=== PATIENT | male | born 1985 | race Caucasian/White ===

== ENCOUNTER 2019-12-06 07:27 | Emergency (ER) | payer SELFPAY ==
[2019-12-06 07:43] VITALS: BP 130/72; PULSE 66; RESP 16; TEMP 36.6; O2SAT 99
--- NOTE | 2019-12-06 08:10 | ED.HA ---
HPI - Headache General Chief Complaint: Headache Stated Complaint: headache Time Seen by Provider: 12/06/19 08:00 Source: patient Mode of arrival: ambulatory Limitations: no limitations History of Present Illness HPI Narrative: Adrian is a very pleasant 34-year-old male patient. He presents ambulatory to the emergency room. He states that he has history of migraine headaches since he was 7 years old. He started having a right-sided headache last evening between 6 and 7:00 p.m.. He has taken ibuprofen and Tylenol but it has not helped. The pain is the usual throbbing type of headache which he gets with his migraines. He has some photophobia and sound also bothers him. He has had nausea and vomiting and has not been able to keep anything down. He tried to take some Tylenol just [employer] but he threw it up. It he has not really been able to eat or drink anything since the headache started. His family physician is . he states that his family doctor is making arrangements for him to be seen by a neurologist in the near future. Besides the migraine headaches, gigi does not have any other medical problems. MD elicited complaint: headache and migraine Pertinent past history: migraines Onset (ago): day(s) ( See HPI narrative of.) Onset description: gradually and while at rest Location: right, frontal and temporal Severity: similar to previous episodes Pain scale (0-10): 7 Quality & Timing: throbbing, constant, pain radiation ( Radiates to the neck) and similar to previous headaches Exacerbating factors: light and noise Relieving factors: other ( has not had any relief with the usual medications which she takes which include ibuprofen and Tylenol) Context: occurred at rest Associated symptoms: nausea, vomiting, photophobia and sensitivity to sound Treatments prior to arrival: acetaminophen and ibuprofen Related Data Home Medications Medication Instructions Recorded Confirmed No Home Medications 12/06/19 12/06/19 Allergies Allergy/AdvReac Type Severity Reaction Status Date / Time No Known Allergies Allergy Verified 12/06/19 08:17 Review of Systems Review of Systems: All systems reviewed & are unremarkable except as noted in HPI and below Constitutional: Constitutional: Reports as per HPI, Denies chills and Denies fever(s) Eyes: Eyes: Reports as per HPI, Denies change in vision and Reports photophobia ENT: Reports system reviewed and no additional complaints, except as documented, Denies vertigo, Denies dizziness, Denies nasal congestion and Denies sore throat Cardiovascular: Cardiovascular: Reports as per HPI, Denies chest pain and Denies radiating jaw, neck or arm pain Respiratory: Respiratory: Reports as per HPI, Denies cough, Denies dyspnea and Denies wheezing Gastrointestinal: Gastrointestinal: Reports as per HPI, Reports nausea and Reports vomiting Genitourinary: Genitourinary: Reports no additional male genitourinary complaints Musculoskeletal: Musculoskeletal: Reports no additional musculoskeletal complaints and Denies back pain Integumentary/Breasts: Skin/Breast: Reports system reviewed and no additional complaints, except as docu, Denies erythema and Denies rash Neurologic: Reports system reviewed and no additional complaints, except as documented, Denies confusion, Denies vertigo, Denies dizziness, Denies syncope, Reports headache(s), Denies focal weakness, Denies numbness and Denies weakness Psychiatric: Psychiatric: Reports no additional psychiatric complaints and Reports anxiety Endocrine: Endocrine: Reports no additional endocrine complaints, Denies polydipsia and Denies polyuria Hematologic/Lymphatic: Hematologic/Lymphatic: Reports no additional hematologic/lymphatic complaints, Denies easy bleeding and Denies easy bruising Allergic/Immunologic: Allergic/Immunologic: Reports no additional allergic/immunologic complaints, Denies lip swelling and Denies throat swelling PMFSH Family History Famil
[2019-12-06] MEDS: ONDANSETRON INJ 4 MG/2 ML VIAL IV PUSH (08:18)
[2019-12-06] MEDS: KETOROLAC 30 MG/ML VIAL (*BKC) IV PUSH (08:18)
[2019-12-06] MEDS: SODIUM CHLORIDE 0.9% IV 1,000 ML 999 ML IV CONT (08:18)
[2019-12-06 09:11] VITALS: BP 130/88; PULSE 70; RESP 20; TEMP 36.2
== END 2019-12-06 09:13 | disposition home or self-care (01) ==
PROVIDERS: Emergency Provider Surgery; PCP Family Medicine
DX: G43.909 Migraine, unspecified, not intractable, without status migrainosus (principal)
CPT/HCPCS: 96361; 96374; 96375; 99282; 99284; J1885; J2405; J7030

== ENCOUNTER 2021-07-20 16:57 | Outpatient (CLI) | payer OTHER, SELFPAY ==
--- NOTE | ~2021-07-20 | XR_ITS ---
XR knee RT 3V DATE: 07/20/2021 17:42 INDICATION: Bending injury. Lateral and medial right knee pain TECHNIQUE: 3 views COMPARISON: 03/14/2017 right knee FINDINGS: No fracture or dislocation or joint effusion. No periosteal reaction or bone destruction. J oint spaces are preserved. No radiographic intra-articular loose body or chondrocalcinosis. IMPRESSION: Negative Reviewed, dictated and finalized at location A. IMPRESSION: Negative
== END 2021-07-20 16:58 | disposition home or self-care (01) ==
LOC: CHSIMG 17:12
PROVIDERS: PCP Nurse Practitioner Family; Visit Provider Nurse Practitioner Family
DX: M25.561 Pain in right knee (principal)
CPT/HCPCS: 73562

== ENCOUNTER 2021-09-18 01:11 | Emergency (ER) | payer OTHER, SELFPAY ==
[2021-09-18 01:11] VITALS: BP 168/121; PULSE 86; RESP 20; TEMP 36.6; O2SAT 98
[2021-09-18 01:21] VITALS: PULSE 86
--- NOTE | 2021-09-18 01:23 | ECG_ITS ---
Measurements Intervals [place] Rate: 82 P: 0 NH: 132 QRS: 25 QRSD: 105 T: -1 QT: 364 QTc: 427 Interpretive Statements SINUS RHYTHM INCOMPLETE RIGHT BUNDLE BRANCH BLOCK DELAYED PRECORDIAL R/S TRANSITION BORDERLINE T WAVE ABNORMALITY- INFERIOR LEADS BORDERLINE ECG Electronically Signed On 09-19-2021 8:55:21 [employer]ACH[employer] BACKTEND[employer] by Jere Ortiz D.O.
--- NOTE | 2021-09-18 01:36 | ED.ARRPALP ---
HPI - Arrhythmia/Palpitations General Chief Complaint: Arrhythmia/Palpitations Stated Complaint: chest pain Source: patient Mode of arrival: ambulatory Limitations: no limitations History of Present Illness HPI narrative: this is a 36-year-old gentleman that has a history of hypertension anxiety felt a sensation of electrical shock in his chest area on 3 separate occasions that occurred earlier this evening while watching TV, and subsequently has resolved has not had any more episodes but was concerned and mildly anxious and presented to the emergency department. Currently his blood pressure is elevated with no chest pain no shortness breath no abdominal pain no fever chills. complaint: palpitations Onset (ago): hour(s) Time: 01:37 Duration: now resolved Severity: mild Related Data Allergies Allergy/AdvReac Type Severity Reaction Status Date / Time No Known Allergies Allergy Verified 10/03/19 18:36 Review of Systems Review of Systems: All systems reviewed & are unremarkable except as noted in HPI and below PMFSH Past Medical History Medical History Anxiety Migraine Surgical History Surgical History History of appendectomy History of carpal tunnel surgery History of tonsillectomy and adenoidectomy Social History Social History Smoking packs per day: 1 Smoking cigarettes per day: 20.0 Smoking status: Current every day smoker Tobacco type: cigarettes Alcohol intake: never Substance use: never Substance use type: marijuana Gender identity (if verbalized by the patient): Male Exam Const: General: no acute distress and alert Orientation/consciousness: patient oriented x3 HENMT: Head: normal to inspection Eyes: Conjunctivae: conjunctivae normal Pupils: Equal, round and reactive pupils present Neck: Neck: normal visual inspection, no lymphadenopathy and no meningeal signs Chest: Chest palpation & inspection: normal inspection of the chest Resp: Effort & Inspection: normal respiratory effort Cardio: Rate: regular rate Rhythm: regular rhythm GI: Auscultation: normal bowel sounds Urinary Catheter: Urinary Catheter: patent and draining Back/Spine/Pelvis: Back: no CVA tenderness Skin: General skin exam: normal color Neuro: General: patient oriented x3, moves all extremities, no meningeal signs and no focal motor deficits Extrem: General: normal to inspection and no pedal edema Psych: Mental Status: mental status grossly normal Course Course Emergency Course: Patient is resting comfortably symptoms have since resolved, blood pressure still elevated 164/112 and will send blood pressure medicine for him to picker/puller in the morning and advised to follow-up his primary care physician otherwise reviewed EKG with patient and family. Vital Signs Vital signs: Vital Signs Temperature 36.6 C 09/18/21 01:11 Pulse Rate 86 09/18/21 01:11 Respiratory Rate 20 09/18/21 01:11 Blood Pressure 168/121 H 09/18/21 01:11 Pulse Oximetry 98 09/18/21 01:11 Temperature 36.6 C 09/18/21 01:11 Pulse Rate 86 09/18/21 01:21 Respiratory Rate 20 09/18/21 01:11 Blood Pressure 168/121 H 09/18/21 01:11 Pulse Oximetry 98 09/18/21 01:11 Critical Care Time Critical Care Time Critical Care Time: No Discharge Plan Discharge Clinical Impression: Anxiety, Palpitations Patient Disposition: Home, Self-Care Condition: Stable Instructions: Antibiotic Form, Heart Palpitations (ED) Additional Instructions: Follow-up with primary care physician within 1 week to assess blood pressure, will be starting blood pressure medicine that can start in the morning. Prescriptions: New losartan-hydrochlorothiazide 50-12.5 mg tablet 1 tablet PO DAILY Qty: 30 RF: 0 Follow-up/Referrals: Dioni,Lori Valentin
[2021-09-18 01:45] VITALS: BP 169/115; PULSE 79; RESP 20; TEMP 37; O2SAT 97
== END 2021-09-18 01:51 | disposition home or self-care (01) ==
PROVIDERS: Emergency Provider Emergency Medicine; PCP Nurse Practitioner Family
DX: F41.9 Anxiety disorder, unspecified (principal); R00.2 Palpitations
CPT/HCPCS: 93005; 99283; 99284

== ENCOUNTER 2022-08-25 17:18 | Emergency (ER) | payer BC, SELFPAY ==
--- NOTE | ~2022-08-25 | XR_ITS ---
EXAMINATION: XR chest 1V DATE: 08/25/2022 18:13 INDICATION: Chest pain. TECHNIQUE: A single frontal view of the chest was obtained. COMPARISON: Chest 2 views 11/30/15, CT abdomen and pelvis 08/02/16 FINDINGS: There is no pneumonia, pleural effusion, or pneumothorax. The heart size is normal. IMPRESSION: 1. No acute cardiopulmonary disease. Reviewed, dictated and finalized at location A.
--- NOTE | ~2022-08-25 | CT_ITS ---
EXAMINATION: CT brain wo con DATE: 08/25/2022 18:13 INDICATION: Headache. TECHNIQUE: Computed tomography (CT) of the head was performed without intravenous contrast. The mA wa s adjusted according to patient size. Iterative reconstruction technique was employed. The dose-lengt h product was 605.33 mGy-cm. COMPARISON: Head CT 03/13/2014 FINDINGS: There is no intracranial hemorrhage, acute infarction, or abnormal intracranial mass lesion . The ventricles are normal in size. The orbits are normal. There is mild mucosal thickening in the p aranasal sinuses. The mastoid air cells are normal. IMPRESSION: 1. Normal brain. Reviewed, dictated and finalized at location A. IMPRESSION: 1. Normal brain.
[2022-08-25 17:28] VITALS: BP 227/138; PULSE 85; RESP 18; TEMP 36.2; O2SAT 98
[2022-08-25 17:29] VITALS: BP 218/131; PULSE 89; RESP 16; TEMP 36.2; O2SAT 97
--- NOTE | 2022-08-25 17:50 | ECG_ITS ---
Measurements Intervals [place] Rate: 73 P: 9 RI: 148 QRS: 53 QRSD: 112 T: -3 QT: 394 QTc: 434 Interpretive Statements SINUS RHYTHM WITH SINUS ARRHYTHMIA MODERATE INTRAVENTRICULAR CONDUCTION DELAY [110+ ms QRS DURATION] ST ELEVATION, PROBABLY EARLY REPOLARIZATION [ST ELEVATION WITH NORMALLY INFLECTED T- WAVE] NONSPECIFIC T-WAVE ABNORMALITY COMPARED TO ECG 09/18/2021 01:30:03 SINUS ARRHYTHMIA NOW PRESENT EARLY REPOLARIZATION IS MORE PROMINENT. Electronically Signed On 08-26-2022 9:05:39 CDT by Tootie Mcelroy M.D.
[2022-08-25] MEDS: KETOROLAC (*BKC) 60 MG/2 ML VIAL IM (17:56)
[2022-08-25] MEDS: cloNIDine HCL 0.2 MG TABLET PO ×2 (17:57→18:38)
--- NOTE | 2022-08-25 17:57 | PC.NURSE ---
patient refused iv and iv fluids, erp aware. patient provided water to drink and denies any nausea or vomiting.
[2022-08-25 17:58] VITALS: BP 178/125; PULSE 83; RESP 18; O2SAT 98
[2022-08-25 18:00] LABS: Basophils Absolute Auto 0.07 K/mm3 (0.00-0.10); Basophils Percent Auto 0.8 % (0.0-1.0); Eosinophils Absolute Auto 0.22 K/mm3 (0.02-0.50); Eosinophils Percent Auto 2.5 % (1.0-6.0); Hematocrit 43.7 % (40.0-54.0); Hemoglobin 15.9 g/dL (14.0-18.0); Immature Granulocyte Absolute 0.01 K/mm3 (0.00-0.00); Immature Granulocyte Percent A 0.1 % (0.0-0.0); Lymphocytes Percent Auto 42.7 % (18.0-42.0); Mean Corpuscular HGB Conc 36.4 g/dL (32.0-36.0); Mean Corpuscular Hemoglobin 32.9 pg (27.0-31.0); Mean Corpuscular Volume 90.3 fL (78.0-102.0); Mean Platelet Volume 9.7 fl (8.7-11.0); Monocytes Absolute Auto 0.73 K/mm3 (0.10-0.90); Monocytes Percent Auto 8.4 % (2.0-11.0); Neutrophils Absolute Auto 3.9 K/mm3 (1.7-7.2); Neutrophils Percent Auto 45.5 % (50.0-70.0); Platelet Count Result 244 K/mm3 (150-420); Red Blood Count 4.84 M/mm3 (4.70-6.10); Red Cell Distribution Width 13.4 % (11.6-14.4); White Blood Count 8.7 K/mm3 (4.8-10.8)
[2022-08-25 18:18] LABS: Alanine Aminotransferase 35 U/L (16-63); Albumin Level 3.8 g/dL (3.4-5.0); Alkaline Phosphatase 41 U/L (46-116); Anion Gap 6 mmol/L (8-16); Aspartate Amino Transferase 23 U/L (15-37); Bilirubin,Total 0.3 mg/dL (0.00-1.00); Blood Urea Nitrogen 12 mg/dL (7-18); Calcium 8.7 mg/dL (8.5-10.1); Carbon Dioxide 32 mmol/L (21-32); Chloride 101 mmol/L (98-108); Estimated CRCL calculation 99 ml/min; Estimated Glomerular Filt Rate > 60; Glucose 109 mg/dL (70-99); Osmolality Calculated 288 mOsm/kg (285-295); Potassium 3.3 mmol/L (3.5-5.1); Sodium 139 mmol/L (136-145); Total Protein 8.2 g/dL (6.4-8.2)
[2022-08-25 18:19] LABS: Ethanol < 3 mg/dL (0-6)
[2022-08-25 18:39] LABS: Add Urine Microscopic? YES; Appearance Urine Clear (Clear); Bilirubin Urine Negative (Negative); Blood Urine Negative (Negative); Color Urine Yellow (Yellow); Glucose Urine UA Negative (Negative); Ketones Urine Negative (Negative); Leukocyte Esterase Ur Negative (Negative); Nitrate Urine Negative (Negative); Protein Urine 2+ (Negative); Specific Grav Ur 1.025 (1.010-1.020); Urobilinogen Urine 0.2 mg/dL (0.2-1.0); pH Urine 6.5 (5.0-8.0)
--- NOTE | 2022-08-25 18:44 | ED.HA ---
HPI - Headache General Chief Complaint: Headache Stated Complaint: high blood pressure;disoriented Time Seen by Provider: 08/25/22 17:22 Source: patient, family and RN notes reviewed Mode of arrival: ambulatory Limitations: no limitations History of Present Illness MD elicited complaint: headache, migraine and other (elevated BP which is new.) Pertinent past history: migraines Onset (ago): hour(s) (7) Onset description: suddenly and with exertion Location: frontal Severity: moderate Pain scale (0-10): 8 Quality & Timing: aching, dull and similar to previous headaches Exacerbating factors: none Relieving factors: nothing Context: occurred with exertion/activity Associated symptoms: none Treatments prior to arrival: ibuprofen Related Data Allergies Allergy/AdvReac Type Severity Reaction Status Date / Time No Known Allergies Allergy Verified 10/03/19 18:36 Review of Systems Review of Systems: All systems reviewed & are unremarkable except as noted in HPI and below Constitutional: Constitutional: Reports no additional constitutional complaints Eyes: Eyes: Reports no additional eye complaints ENT: Reports system reviewed and no additional complaints, except as documented Cardiovascular: Cardiovascular: Reports no additional cardiovascular complaints Respiratory: Respiratory: Reports no additional respiratory complaints Gastrointestinal: Gastrointestinal: Reports no additional gastrointestinal complaints Musculoskeletal: Musculoskeletal: Reports no additional musculoskeletal complaints Integumentary/Breasts: Skin/Breast: Reports system reviewed and no additional complaints, except as docu Neurologic: Reports system reviewed and no additional complaints, except as documented and Reports headache(s) Psychiatric: Psychiatric: Reports no additional psychiatric complaints Endocrine: Endocrine: Reports no additional endocrine complaints Hematologic/Lymphatic: Hematologic/Lymphatic: Reports no additional hematologic/lymphatic complaints Allergic/Immunologic: Allergic/Immunologic: Reports no additional allergic/immunologic complaints [facility] Past Medical History Medical History Anxiety Hypertension Migraine Surgical History Surgical History History of appendectomy History of carpal tunnel surgery History of tonsillectomy and adenoidectomy Social History Social History Smoking packs per day: 1 Smoking cigarettes per day: 20.0 Smoking status: Current every day smoker Tobacco type: cigarettes Alcohol intake: never Substance use: never Substance use type: marijuana Gender identity (if verbalized by the patient): Male Exam Const: General: healthy appearing, no acute distress and well nourished Nutritional Appearance: well nourished Orientation/consciousness: patient oriented x3 Limitations: no limitations HENMT: Head: normal to inspection Ears: external ears normal, TM's normal bilaterally and EAC's normal Face/Nose/Sinus: Normal external nose present, Normal nares present, normal facial exam and sinuses nontender Face and sinus: normal facial exam and sinuses nontender Mouth: Yes Normal oral and palatal mucosa present and Yes moist mucous membranes Teeth and gingiva: dentition normal Throat: posterior oropharynx normal Eyes: Conjunctivae: conjunctivae normal Pupils: Equal, round and reactive pupils present EOM: EOMs intact bilaterally Neck: Neck: normal visual inspection, no lymphadenopathy and no meningeal signs Chest: Chest palpation & inspection: normal inspection of the chest Resp: Effort & Inspection: normal respiratory effort Auscultation: clear to auscultation bilaterally Cardio: Rate: regular rate Rhythm: regular rhythm GI: GI Palp: Yes Soft to palpation and No Tenderness to palpation present (GI) Auscultat
[2022-08-25 18:46] LABS: Amphetamine Screen Urine Negative (Negative); Barbiturate Screen Urine Negative (Negative); Benzodiazepines Screen Urine Negative (Negative); Cannabinoid Screen Urine Positive (Negative); Cocaine Screen Urine Negative (Negative); Methadone Screen Urine Negative (Negative); Opiate Screen Urine Negative (Negative); Phencyclidine Screen Urine Negative (Negative)
[2022-08-25 18:47] LABS: Bacteria Urine Trace /hpf; RBC Urine 0-2 /hpf (0-2); WBC Urine 0-3 /hpf (0-3)
[2022-08-25] MEDS: POTASSIUM CHLORIDE 20 MEQ TABLET PO (18:50)
[2022-08-25 19:06] VITALS: BP 187/100; PULSE 69; RESP 20; O2SAT 96
[2022-08-25 19:17] VITALS: BP 170/92; PULSE 78; RESP 18; TEMP 37.2; O2SAT 96
== END 2022-08-25 19:21 | disposition home or self-care (01) ==
PROVIDERS: Emergency Provider Emergency Medicine; PCP Nurse Practitioner Family
DX: G43.909 Migraine, unspecified, not intractable, without status migrainosus (principal); I10 Essential (primary) hypertension; F17.200 Nicotine dependence, unspecified, uncomplicated
CPT/HCPCS: 36415; 70450; 71045; 80053; 80307; 81001; 84484; 85025; 93005; 96372; 99284; A9270; J1885

== ENCOUNTER 2022-09-12 20:54 | Emergency (ER) | payer BC, SELFPAY ==
[2022-09-12 21:02] VITALS: BP 151/95; PULSE 80; RESP 18; TEMP 36.5; O2SAT 95
[2022-09-12 21:08] VITALS: BP 139/80; PULSE 76; RESP 20; O2SAT 98
[2022-09-12 21:15] VITALS: BP 110/87
[2022-09-12 21:30] VITALS: BP 125/85
--- NOTE | 2022-09-12 21:37 | ED.GENADULT ---
HPI - General Adult General Chief complaint: Unspecified Stated complaint: blood pressure is 98 over 76 Time Seen by Provider: 09/12/22 20:56 Source: patient and RN notes reviewed Mode of arrival: ambulatory Limitations: no limitations History of Present Illness complaint: uncontrolled BP Onset (ago): day(s) (1) Radiation: non-radiation Severity: mild Quality: other (no acute sxs.) Pain Consistency: other (pain-free) Relieving factors: none Exacerbating factors: none Associated symptoms: denies other symptoms Related Data Home Medications Medication Instructions Recorded Confirmed lisinopril 20 mg tablet 20 mg PO BID 09/12/22 09/12/22 Allergies Allergy/AdvReac Type Severity Reaction Status Date / Time No Known Allergies Allergy Verified 09/12/22 21:24 Review of Systems Review of Systems: All systems reviewed & are unremarkable except as noted in HPI and below Constitutional: Constitutional: Reports no additional constitutional complaints Eyes: Eyes: Reports no additional eye complaints ENT: Reports system reviewed and no additional complaints, except as documented Cardiovascular: Cardiovascular: Reports no additional cardiovascular complaints Respiratory: Respiratory: Reports no additional respiratory complaints Gastrointestinal: Gastrointestinal: Reports no additional gastrointestinal complaints Musculoskeletal: Musculoskeletal: Reports no additional musculoskeletal complaints Integumentary/Breasts: Skin/Breast: Reports system reviewed and no additional complaints, except as docu Neurologic: Reports system reviewed and no additional complaints, except as documented Psychiatric: Psychiatric: Reports no additional psychiatric complaints Endocrine: Endocrine: Reports no additional endocrine complaints Hematologic/Lymphatic: Hematologic/Lymphatic: Reports no additional hematologic/lymphatic complaints Allergic/Immunologic: Allergic/Immunologic: Reports no additional allergic/immunologic complaints [facility] Past Medical History Medical History Anxiety Hypertension Migraine Surgical History Surgical History History of appendectomy History of carpal tunnel surgery History of tonsillectomy and adenoidectomy Family History Family History Mother No problems noted. Mother No problems noted. Father No problems noted. Social History Social History Smoking packs per day: 1 Smoking cigarettes per day: 20.0 Years smoked: 10 Smoking pack-years: 10.00 Smoking status: Current every day smoker Tobacco type: cigarettes Alcohol intake: never Alcohol use details: denies alcohol use Substance use: never Substance use type: marijuana Gender identity (if verbalized by the patient): Male Exam Const: General: healthy appearing, no acute distress and well nourished Nutritional Appearance: well nourished Orientation/consciousness: patient oriented x3 Limitations: no limitations HENMT: Head: normal to inspection Ears: external ears normal, TM's normal bilaterally and EAC's normal Face/Nose/Sinus: Normal external nose present, Normal nares present, normal facial exam and sinuses nontender Face and sinus: normal facial exam and sinuses nontender Mouth: Yes Normal oral and palatal mucosa present and Yes moist mucous membranes Teeth and gingiva: dentition normal Throat: posterior oropharynx normal Eyes: Conjunctivae: conjunctivae normal Pupils: Equal, round and reactive pupils present EOM: EOMs intact bilaterally Neck: Neck: normal visual inspection, no lymphadenopathy and no meningeal signs Chest: Chest palpation & inspection: normal inspection of the chest Resp: Effort & Inspection: normal respiratory effort Auscultation: clear to auscul
[2022-09-12 21:40] VITALS: BP 133/81; PULSE 83; RESP 18; O2SAT 100
== END 2022-09-12 21:45 | disposition home or self-care (01) ==
PROVIDERS: Emergency Provider Emergency Medicine; PCP Nurse Practitioner
DX: I10 Essential (primary) hypertension (principal)
CPT/HCPCS: 99281

== ENCOUNTER 2023-12-23 12:38 | Emergency (ER) | payer BC, SELFPAY ==
--- NOTE | ~2023-12-23 | XR_ITS ---
EXAMINATION: XR chest 1V portable DATE: 12/23/2023 12:49 INDICATION: 4 days of congestion TECHNIQUE: AP view of the chest was obtained. COMPARISON: Chest radiograph dated 08/25/2022 FINDINGS: The lungs remain clear with no focal airspace opacities, pulmonary edema, pleural effusion or pneumot horax. The cardiomediastinal silhouette is normal. Visualized bones and soft tissues are unremarkable . IMPRESSION: 1. Normal chest radiograph. Reviewed, dictated and finalized at location A. E OPERATOR IMPRESSION: 1. Normal chest radiograph.
[2023-12-23 12:42] VITALS: O2SAT 97
[2023-12-23 12:43] VITALS: BP 186/91; PULSE 96; RESP 20; TEMP 36.8; O2SAT 99
[2023-12-23] MEDS: IBUPROFEN 400 MG TABLET 800 MG PO (12:51)
[2023-12-23] MEDS: IPRATROPIUM 0.5 MG/ALBUTEROL SULFATE 2.5 MG AMPUL.NEB 3 ML INHALATION (12:52)
[2023-12-23] MEDS: ACETAMINOPHEN 500 MG TABLET 1000 MG PO (12:52)
[2023-12-23 12:56] VITALS: PULSE 76; RESP 20; O2SAT 98
--- NOTE | 2023-12-23 12:57 | ED.GENADULT ---
HPI - General Adult General Chief complaint: Upper Respiratory Infection Stated complaint: URI History of Present Illness HPI narrative: this is a 38-year-old male presenting ED with 2 days of flu-like symptoms. Patient has had a headache, nasal congestion, sore throat, and decreased appetite. Denies fever, chills, chest pain, difficulty breathing, abdominal pain nausea vomiting or diarrhea. Not vaccine is COVID. No sick. Patient has not taken anything for symptoms. Related Data Home Medications Medication Instructions Recorded Confirmed amlodipine 2.5 mg tablet 2.5 mg PO DAILY 12/23/23 12/23/23 carvedilol 3.125 mg tablet 3.125 mg PO DAILY 12/23/23 12/23/23 levothyroxine 50 mcg tablet 50 mcg PO DAILY 12/23/23 12/23/23 lisinopril 40 mg tablet 40 mg PO DAILY 12/23/23 12/23/23 propranolol 80 mg capsule,24 80 mg PO DAILY 12/23/23 12/23/23 hr,extended release Allergies Allergy/AdvReac Type Severity Reaction Status Date / Time No Known Allergies Allergy Verified 12/23/23 12:44 [facility] Past Medical History Medical History (Updated 12/23/23 @ 13:51 by Sina Azevedo MD) Anxiety Hypertension Migraine Surgical History Surgical History History of appendectomy History of carpal tunnel surgery History of tonsillectomy and adenoidectomy Family History Family History Mother No problems noted. Mother No problems noted. Father No problems noted. Social History Social History Smoking packs per day: 1 Smoking cigarettes per day: 20.0 Years smoked: 10 Smoking pack-years: 10.00 Smoking status: Current every day smoker Tobacco type: cigarettes Alcohol intake: never Alcohol use details: denies alcohol use Substance use: never Substance use type: marijuana Gender identity (if verbalized by the patient): Male Exam Narrative: APPEARANCE: No apparent distress. obese Head: normal TMs, erythematous oropharynx EYES: EOMI, NOSE: Atraumatic NECK: Trachea midline RESPIRATORY: No increased rate of breathing , scattered expiratory wheezing CARDIOVASCULAR: RRR, no peripheral edema ABDOMINAL: Non-distended MUSCULOSKELETAl: No obvious deformities NEURO: Alert. Moving 4/4 extremities SKIN:: Warm, dry. Normal color PSYCHIATRIC: Normal affect Course Vital Signs Vital signs: Vital Signs Pulse Oximetry 97 12/23/23 12:42 Oxygen Delivery Room Air 12/23/23 12:42 Temperature 98.3 F 12/23/23 12:43 Pulse Rate 86 12/23/23 13:16 Respiratory Rate 22 H 12/23/23 13:16 Blood Pressure 157/105 H 12/23/23 13:16 Pulse Oximetry 100 12/23/23 13:16 Oxygen Delivery Room Air 12/23/23 13:16 Medical Decision Making MDM Narrative Medical decision making narrative: -Course: 30-year-old male presenting with flu-like symptoms. Found to be COVID positive. Vital signs stable not requiring supplemental oxygen. Patient's condition improved after NSAIDs. Patient will be discharged with return precautions. -DDX includes but is not limited to: COVID, flu, bronchitis, viral syndrome, strep throat -Co-morbidities complicating care: hypertension, anxiety -Social determinants of health: works as a automotive parts person lives with his fiancee when the -Hx from independent Sources: [place] @ bedside -Independent interpretation of studies: COVID positive -Interventions: Motrin, Tylenol, DuoNeb -Shared decision making / Disposition: discharged -RX Motrin Tylenol Vital Signs Vital Signs: Vital Signs Pulse Oximetry 97 12/23/23 12:42 Oxygen Delivery Room Air 12/23/23 12:42 Temperature 98.3 F 12/23/23 12:43 Pulse Rate 86 12/23/23 13:16 Respiratory Rate 22 H 12/23/23 13:16 Blood Pressure 157/105 H 12/23/23 13:16 Pulse Oximetry 100 12/23/23 13:16 Oxygen Delivery Room Air 12/23/23 13:16
[2023-12-23 13:13] VITALS: PULSE 83; RESP 22; O2SAT 95
[2023-12-23 13:16] VITALS: BP 157/105; PULSE 86; RESP 22; O2SAT 100
[2023-12-23 13:33] LABS: Strep Group A RT-PCR NOT DETECTED (Negative)
[2023-12-23 13:44] LABS: SARS-CoV-2 RNA PCR Positive (Negative)
[2023-12-23 13:45] LABS: Influenza A QL RT-PCR Negative (Negative); Influenza B QL RT-PCR Negative (Negative); RSV RNA, RT-PCR Negative (Negative)
[2023-12-23 13:55] VITALS: BP 153/98; PULSE 71; RESP 20; TEMP 37.2; O2SAT 96
== END 2023-12-23 13:55 | disposition home or self-care (01) ==
PROVIDERS: Emergency Provider Emergency Medicine; PCP Nurse Practitioner Family
DX: U07.1 COVID-19 (principal); I10 Essential (primary) hypertension; F17.210 Nicotine dependence, cigarettes, uncomplicated; Z79.899 Other long term (current) drug therapy
CPT/HCPCS: 71045; 87637; 87651; 99283; A9270

== ENCOUNTER 2024-05-16 06:59 | Outpatient (CLI) | payer BC, SELFPAY ==
[2024-05-16 07:24] LABS: Basophils Absolute Auto 0.05 K/mm3 (0.00-0.10); Basophils Percent Auto 0.6 % (0.0-1.0); Eosinophils Absolute Auto 0.22 K/mm3 (0.02-0.50); Eosinophils Percent Auto 2.6 % (1.0-6.0); Hematocrit 44.1 % (40.0-54.0); Hemoglobin 15.5 g/dL (14.0-18.0); Immature Granulocyte Absolute 0.02 K/mm3 (0.00-0.00); Immature Granulocyte Percent A 0.2 % (0.0-0.0); Lymphocytes Percent Auto 36.6 % (18.0-42.0); Mean Corpuscular HGB Conc 35.1 g/dL (32-36); Mean Corpuscular Volume 90.9 fL (78.0-102.0); Mean Platelet Volume 9.2 fl (8.7-11.0); Monocytes Absolute Auto 0.86 K/mm3 (0.10-0.90); Monocytes Percent Auto 10.2 % (2.0-11.0); Neutrophils Absolute Auto 4.21 K/mm3 (1.70-7.20); Neutrophils Percent Auto 49.8 % (50.0-70.0); Platelet Count Result 221 K/mm3 (150-420); Red Blood Count 4.85 M/mm3 (4.70-6.10); Red Cell Distribution Width 13.8 % (11.6-14.4); White Blood Count 8.5 K/mm3 (4.8-10.8)
[2024-05-16 08:24] LABS: Alanine Aminotransferase 40 U/L (16-63); Albumin Level 3.6 g/dL (3.4-5.0); Alkaline Phosphatase 48 U/L (46-116); Anion Gap 10 mmol/L (4-12); Aspartate Amino Transferase 22 U/L (15-37); Bilirubin,Total 0.2 mg/dL (0.00-1.00); Blood Urea Nitrogen 15 mg/dL (7-18); Calcium 8.9 mg/dL (8.5-10.1); Carbon Dioxide 28 mmol/L (21-32); Chloride 99 mmol/L (98-108); Cholesterol 178 mg/dL (0-200); Estimated Glomerular Filt Rate > 60; Glucose 109 mg/dL (70-99); HDL Direct 35 mg/dL (40-60); LDL Cholesterol Calculated 81 mg/dL (<130); Osmolality Calculated 285 mOsm/kg (285-295); Potassium 4.4 mmol/L (3.5-5.1); Sodium 137 mmol/L (136-145); Thyroid Stimulating Hormone 4.83 uIU/mL (0.36-3.74); Total Protein 7.8 g/dL (6.4-8.2); Triglycerides 308 mg/dL (0-150)
== END 2024-05-16 07:00 | disposition home or self-care (01) ==
LOC: CHSLAB 07:02
PROVIDERS: PCP Family Medicine; Visit Provider Family Medicine
DX: I10 Essential (primary) hypertension (principal); E03.9 Hypothyroidism, unspecified; R94.6 Abnormal results of thyroid function studies
CPT/HCPCS: 36415; 80053; 80061; 84439; 84443; 85025

== ENCOUNTER 2024-09-04 07:17 | Outpatient (CLI) | payer BC, SELFPAY | END 2024-09-04 07:18 | disposition home or self-care (01) | LOC: CHSLAB 07:19 | PROVIDERS: PCP Family Medicine; Visit Provider Family Medicine | DX: E03.9 Hypothyroidism, unspecified (principal) | CPT/HCPCS: 36415; 84443 ==

== ENCOUNTER 2024-11-03 23:31 | Emergency (ER) | payer BC, SELFPAY ==
--- NOTE | 2024-11-03 23:35 | ED.URI ---
HPI - URI/Sore Throat General Chief Complaint: Upper Respiratory Infection Stated Complaint: sore throat Time Seen by Provider: 11/03/24 23:34 Source: patient Mode of arrival: ambulatory Limitations: no limitations History of Present Illness HPI Narrative: Patient is a 39-year-old male with a sore throat for 3 days. He has a fever sensation but no fever. MD elicited complaint: fever and sore throat Pertinent past history: other ( None) Onset (ago): day(s) (3) Consistency: constant Severity: moderate Pain scale (0-10): 5 Description of mucous: clear Able to tolerate fluids by mouth: Yes Exacerbating factors: swallowing Relieving factors: nothing Context: other ( patient has a sore throat for 3 days) Associated symptoms: fever ( sensation of fever but no actual fever) and sore throat Treatments prior to arrival: none Related Data Home Medications ?Medication ?Instructions ?Recorded ?Confirmed ?Last Taken ?Type amlodipine 2.5 mg tablet 2.5 mg PO DAILY 12/23/23 12/23/23 Unknown History carvedilol 3.125 mg tablet 3.125 mg PO DAILY 12/23/23 12/23/23 Unknown History levothyroxine 50 mcg tablet 50 mcg PO DAILY 12/23/23 12/23/23 Unknown History lisinopril 40 mg tablet 40 mg PO DAILY 12/23/23 12/23/23 Unknown History propranolol 80 mg capsule,24 80 mg PO DAILY 12/23/23 12/23/23 Unknown History hr,extended release Allergies Allergy/AdvReac Type Severity Reaction Status Date / Time No Known Allergies Allergy Verified 12/23/23 12:44 Review of Systems Review of Systems: All systems reviewed & are unremarkable except as noted in HPI and below Constitutional: Constitutional: Reports no additional constitutional complaints Eyes: Eyes: Reports no additional eye complaints ENT: Reports system reviewed and no additional complaints, except as documented Cardiovascular: Cardiovascular: Reports no additional cardiovascular complaints Respiratory: Respiratory: Reports no additional respiratory complaints Gastrointestinal: Gastrointestinal: Reports no additional gastrointestinal complaints Genitourinary: Genitourinary: Reports no additional male genitourinary complaints Musculoskeletal: Musculoskeletal: Reports no additional musculoskeletal complaints Integumentary/Breasts: Skin/Breast: Reports system reviewed and no additional complaints, except as docu Neurologic: Reports system reviewed and no additional complaints, except as documented Psychiatric: Psychiatric: Reports no additional psychiatric complaints Endocrine: Endocrine: Reports no additional endocrine complaints Hematologic/Lymphatic: Hematologic/Lymphatic: Reports no additional hematologic/lymphatic complaints Allergic/Immunologic: Allergic/Immunologic: Reports no additional allergic/immunologic complaints [facility] Past Medical History Medical History (Updated 11/04/24 @ 00:56 by Jose Angel Suazo MD) Hypertension Anxiety Migraine Surgical History Surgical History History of tonsillectomy and adenoidectomy History of carpal tunnel surgery History of appendectomy Family History Family History Mother No problems noted. Mother No problems noted. Father No problems noted. Social History Social History Smoking packs per day: 1 Smoking cigarettes per day: 20.0 Years smoked: 10 Smoking pack-years: 10.00 Smoking status: Current every day smoker Tobacco type: cigarettes Alcohol intake: never Alcohol use details: denies alcohol use Substance use: never Substance use type: marijuana Gender identity (if verbalized by the patient): Male Exam Const: General: healthy appearing Nutritional Appearance: well nourished Orientation/consciousness: patient oriented x3 Limitations: no limitations HENMT: Head: normal to inspection Ears: external ears normal Face/Nose/Sinus: Normal external nose present Other: red oropharynx with slight tonsillar hypertrophy bilateral Eyes: Conjunctivae: conjunctivae normal Pupils: Equal, round and reactive pupils present EOM: EOMs intact bilaterally Neck: Neck: normal visual inspection Chest: Chest palpation & inspection: normal inspection of the chest Resp: Effort & Inspection: normal respiratory effort and not labored Auscultation: clear to auscultation bilaterally and no crackles Cardio: Rate: regular rate Rhythm: regular rhythm Heart sounds: no murmurs GI: Inspection: non-distended GI Palp: Yes Soft to palpation and No Tenderness to palpation present (GI) Auscultation: normal bowel sounds : General: Yes bladder normal to palpation Back/Spine/Pelvis: Back: no CVA tenderness Skin: General skin exam: normal color Rashes: no rashes Wounds: no wounds Neuro: General: patient oriented x3 Cranial nerves: Yes Nystagmus not present Speech: normal speech Gait exam (Neuro): Normal gait present Extrem: General: normal to inspection Psych: Mental Status: mental status grossly normal Affect: normal affect Attitude: cooperative Course Vital Signs Vital signs: Vital Signs Temperature 36.8 C 11/03/24 23:39 Pulse Rate 99 11/03/24 23:39 Respiratory Rate 18 11/03/24 23:39 Blood Pressure 145/91 H 11/03/24 23:39 Pulse Oximetry 97 11/03/24 23:39 Oxygen Delivery Room Air 11/03/24 23:39 Temperature 36.8 C 11/03/24 23:39 Pulse Rate 99 11/03/24 23:39 Respiratory Rate 18 11/03/24 23:39 Blood Pressure 145/91 H 11/03/24 23:39 Pulse Oximetry 97 11/03/24 23:39 Oxygen Delivery Room Air 11/03/24 23:39 MDM - URI/Sore Throat MDM Narrative Medical decision making narrative: patient is a 39-year-old male with a sore throat for 3 days. COVID testing was negative with the panel and further strep was negative. Due to the fact that this is a sore throat and unresolved we will go ahead and treat with amoxicillin. We will add some prednisone for the swelling sensations throat. Lab Data Attestation: I reviewed the patient's lab results. Labs: Lab Results 11/03/24 Range/Units 23:47 Influenza A (RT-PCR) Negative (Negative) Influenza B (RT-PCR) Negative (Negative) RSV (RT-PCR) Negative (Negative) SARS-CoV-2 RNA (RT-PCR) Negative (Negative) Group A Strep (PCR) Not detected (Negative) Discharge Plan Discharge Clinical Impression: Pharyngitis Qualifiers: Pharyngitis/tonsillitis etiology: other specified organisms Qualified Code(s): J02.8 - Acute pharyngitis due to other specified organisms Patient Disposition: Home, Self-Care Condition: Stable Instructions: Antibiotic Form, Strep Throat (ED) Patient Language: Turkmen Prescriptions: New amoxicillin 500 mg capsule 500 mg PO BID 10 Days Qty: 20 0RF prednisone 20 mg tablet 40 mg PO DAILY 2 Days Qty: 4 0RF No Action amlodipine 2.5 mg tablet 2.5 mg PO DAILY carvedilol 3.125 mg tablet 3.125 mg PO DAILY levothyroxine 50 mcg tablet 50 mcg PO DAILY propranolol 80 mg capsule,extended release 24hr 80 mg PO DAILY lisinopril 40 mg tablet 40 mg PO DAILY acetaminophen 500 mg tablet 1,000 mg PO TID PRN (Reason: iva) 7 Days Qty: 42 0RF ibuprofen 800 mg tablet 800 mg PO TID PRN (Reason: pain) 7 Days Qty: 21 0RF Follow-up/Referrals: Del Moya MD [Primary Care Provider] - Time of Disposition: 00:58
[2024-11-03 23:39] VITALS: BP 145/91; PULSE 99; RESP 18; TEMP 36.8; O2SAT 97
--- NOTE | 2024-11-03 23:50 | PC.NURSE ---
patient and his visitor given drinks, updated on plan of care. call light within reach and lights dimmed for comfort. RN monitoring.
[2024-11-04 00:15] LABS: Strep Group A RT-PCR NOT DETECTED (Negative)
[2024-11-04 00:25] LABS: SARS-CoV-2 RNA PCR Negative (Negative)
[2024-11-04 00:41] LABS: Influenza A QL RT-PCR Negative (Negative); Influenza B QL RT-PCR Negative (Negative); RSV RNA, RT-PCR Negative (Negative)
--- NOTE | 2024-11-04 00:48 | PC.NURSE ---
ERP Dr. Suazo at bedside at this time for update including results and plan of care.
[2024-11-04] MEDS: AMOXICILLIN 500 MG CAPSULE PO (01:08)
[2024-11-04] MEDS: predniSONE 20 MG TABLET 40 MG PO (01:08)
== END 2024-11-04 01:11 | disposition home or self-care (01) ==
PROVIDERS: Emergency Provider Emergency Medicine; PCP Family Medicine
DX: J02.8 Acute pharyngitis due to other specified organisms (principal); F17.210 Nicotine dependence, cigarettes, uncomplicated; Z20.822 Contact with and (suspected) exposure to COVID-19
CPT/HCPCS: 87637; 87651; 99283; A9270; J7512

== ENCOUNTER 2024-12-10 17:29 | Outpatient (CLI) | payer BC, SELFPAY ==
--- OUTSIDE RECORDS SUMMARY | 2024-12-10 17:34 | XMS_ITS | Clinical Summary ---
Author Organization [facility] Address [facility] [place] [address] Care Team Providers Care Internet Architect Name Role Phone GilbertoRutha [facility] Primary Care Provider [phone] Odalys Garcia MD Unavailable Allergies No known active allergies Medications carvedilol (COREG) 3.125 MG tablet Take 1 tablet (3.125 mg total) by mouth 2 (two) times daily. 60 tablet 11 05/28/2023 Active amLODIPine (NORVASC) 5 MG tablet Take 1 tablet (5 mg total) by mouth daily. 30 tablet 05/28/2023 Active lisinopril (PRINIVIL) 40 MG tablet Take 1 tablet (40 mg total) by mouth daily. 30 tablet 05/28/2023 Active Active Problems No known active problems Family History Medical History Relation Comments Heart Attack Maternal Grandfather Diabetes Mother Hypertension Mother Stroke Mother Relation Status Comments Maternal Grandfather Mother Social History Tobacco Use Types Packs/Day Years Used Date Smoking Tobacco: Every Day Cigarettes Tobacco Cessation:Ready to Q uit: Not Asked; Counseling Given: Not Answered Alcohol Use Standard Drinks/Week Comments Not Currently 0 (1 standard drink = 0.6 oz pur e alcohol) Sex and Gender Information Value Date Recorded Sex Assigned at Not on file Legal Sex Male 11:21 PM [employer] MEL[employer] Gender Identity Not on file Sexual Orientation Not on file Last Filed Vital Signs Vital Sign Reading Time Taken Comments Blood Pressure 150/82 05/28/2023 2:52 PM CDT Pulse 90 05/28/2023 2:52 PM CDT Temperature - - Respiratory Rate 20 05/28/2023 2:52 PM CDT Oxygen Saturation 97% 05/28/2023 2:52 PM CDT Inhaled Oxygen Concentration - - Weight 139.7 kg (308 lb) 05/28/2023 2:52 PM CDT Height 167.6 cm (5' 6 ) 05/28/2023 2:52 PM CDT Body Mass Index 49.71 05/28/2023 2:52 PM CDT Plan of Treatment Health Maintenance Due Date Last Done Comments Annual Physical 1988 Pneumococcal Vaccine: Pediatrics (0 to 5 Years) and At-Risk Patients (6 to 64 Years) (1 of 2 - PCV) 1991 DTaP, Tdap and Td Vaccines (5 - Tdap) 06/27/2000 06/26/2000, 05/30/1989, 08/04/1988, Additional history exists Hepatitis C 2003 Hepatitis B Vaccines (1 of 3 - 19+ 3-dose series) 2004 COVID-19 Vaccine ( season) 2024 Influenza Adult (#1) 2024 HPV Vaccines Aged Out No longer eligi ble based on patient's age to complete this topic Meningococcal B Vaccine Aged Out No l onger eligible based on patient's age to complete this topic Meningococcal Vaccine Aged Out No mavis raegan eligible based on patient's age to complete this topic RSV Immunizations Under 20 Months Aged Out No longer eligible based on patient's age to complete this topic Insurance Care Teams Internet Architect Relationship Specialty Start Date End Date Clara Macias FNP-BC [address] [place] [address] PCP - General NURSE PRACTITIONER 09/19/22 Odalys Garcia MD [address] [place] [address] [employer] Tech CARDIOVASCULAR DISEASE 09/19/22
--- OUTSIDE RECORDS SUMMARY | 2024-12-10 17:34 | XMS_ITS | Encounter Summary ---
Author Organization [facility] Address [facility] [place] [address] Care Team Providers Care Tugboat Dispatcher Name Role Phone Clara Macias [facility] Primary Care Provider [phone] Odalys Garcia MD Unavailable Encounter Details Date Type Department Care Team (Late st Contact Info) Description 04/12/2019 Abstract [facility]FL CONVERSION [address] [place] [address] , Generic Conversion, Social History Tobacco Use Types Packs/Day Years Used Date Smoking Tobacco: Never Assessed Sex and Gender Information Value Date Recorded Sex Assigned at Not on file 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
[2024-12-10 18:31] LABS: Thyroid Stimulating Hormone 6.78 uIU/mL (0.36-3.74)
== END 2024-12-10 17:30 | disposition home or self-care (01) ==
LOC: CHSLAB 17:32
PROVIDERS: PCP Family Medicine; Visit Provider Family Medicine
DX: E03.9 Hypothyroidism, unspecified (principal)
CPT/HCPCS: 36415; 84443

== ENCOUNTER 2025-04-13 17:22 | Outpatient (CLI) | payer BC, SELFPAY | END 2025-04-13 17:23 | disposition home or self-care (01) | PROVIDERS: PCP Family Medicine; Visit Provider Family Medicine | DX: E03.9 Hypothyroidism, unspecified (principal) | CPT/HCPCS: 36415; 84443 ==

== ENCOUNTER 2025-10-30 11:49 | Outpatient (CLI) | payer BC, SELFPAY ==
--- NOTE | ~2025-10-30 | XR_ITS ---
EXAMINATION: XR chest 2V 10/30/2025 12:02 INDICATION: Shortness of breath. Productive cough. PROCEDURE: 2 view chest COMPARISON: 12/23/2023 FINDINGS: The lungs are clear. The cardiomediastinal silhouette is within normal limits. There are no pleural effusions. There is no pneumothorax suspected. IMPRESSION: 1: NO ACUTE CARDIOPULMONARY DISEASE. Reviewed, dictated and finalized at location O. MACEUTICAL OFFICER
--- OUTSIDE RECORDS SUMMARY | 2025-10-30 11:52 | XMS_ITS | Clinical Summary ---
Author Organization 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 Gender Identity Not on file Sexual Orientation [...] 2:52 PM CDT Height 167.6 cm (5' 6) 05/28/2023 2:52 PM CDT Body Mass Index 49.71 05/28/2023 2:52 PM CDT Plan of Treatment Health Maintenance Due Date Last Done Comments Annual Physical 1988 DTaP, Tdap and Td Vaccines (5 - Tdap) 06/27/2000 06/26/2000, 05/30/1989, 08/04/1988, Additional history exists Hepatitis C 2003 Hepatitis B Vaccines (1 of 3 - 19+ 3-dose series) 2004 Pneumococcal Vaccine: Pediatrics (0 to 5 Years) and At-Risk Patients (6 to 49 Years) (1 of 2 - PCV) 2004 HPV Vaccines (1 - 3-dose SCDM series) 2012 COVID-19 Vaccine ( season) 2025 Influenza Adult (#1) 2025 Hepatitis A Vaccines Aged Out No long er eligible based on patient's age to complete this topic Meningococcal B Vaccine Aged Out No l onger eligible based on patient's age to complete this topic Meningococcal Vaccine Aged Out No mavis raegan eligible based on patient's age to complete this topic RSV Immunizations Under 20 Months Aged Out No longer eligible based on patient's age to complete this topic Insurance [facility] Care Teams Household Appliance Repairer Relationship Specialty Start Date End Date Clara Macias [facility] [address] [place] [address] PCP - General NURSE PRACTITIONER 09/19/22 Odalys Garcia MD [address] [place] [address] [place] Production Packager CARDIOVASCULAR DISEASE 09/19/22
== END 2025-10-30 11:50 | disposition home or self-care (01) ==
PROVIDERS: PCP Family Medicine; Visit Provider Family Medicine
DX: J20.9 Acute bronchitis, unspecified (principal)
CPT/HCPCS: 71046